=== PATIENT | female | born 1950 | race Caucasian/White ===

== ENCOUNTER 2022-11-05 13:23 | Inpatient (IN) | payer MEDICARE, BC ==
[~2022-11-05] VITALS: Ht 167.6 cm; Wt 87.1 kg
[2022-11-05] MEDS ORDERED: CYCL5TAB PO (16:06)
[2022-11-05] MEDS ORDERED: IBUP-1955 PO (16:06)
[2022-11-05 17:05] LABS: BASOPHILS % (AUTO) 0.2 % (0.0-2.0); EOSINOPHILS % (AUTO) 0.2 % (0.0-6.0); HEMATOCRIT 39 % (33-45); HEMOGLOBIN 12.7 g/dL (11.5-14.8); LYMPHOCYTES # (AUTO) 0.9 K/uL (0.8-4.8); MEAN CORPUSCULAR HGB CONC 33 g/dl (31.0-36.0); MEAN CORPUSCULAR VOLUME 91 fL (82-100); MONOCYTES # (AUTO) 0.7 K/uL (0.1-1.30); MONOCYTES % (AUTO) 4.6 % (2.0-12.0); NEUTROPHILS # (AUTO) 12.7 K/uL (1.8-8.9); PLATELET COUNT (AUTO) 213 K/uL (150-450); RED BLOOD CELL COUNT(AUTO) 4.24 MIL/uL (4.0-5.2); WHITE BLOOD COUNT (AUTO) 14.3 K/uL (4.3-11.0)
[2022-11-05 17:13] LABS: CALCIUM, SERUM 9.5 mg/dL (8.5-10.1); CARBON DIOXIDE 25 mmol/L (21-32); CHLORIDE 102 mmol/L (98-107); GLUCOSE 166 mg/dL (74-106); SODIUM SERUM 138 mmol/L (136-145); UREA NITROGEN, BLOOD 20 mg/dL (7-18)
[2022-11-05] MEDS ORDERED: ONDANSETRON HCL/PF 4 MG/2 ML VIAL IVP PRN (19:30)
[2022-11-05] MEDS ORDERED: ACETAMINOPHEN 325 MG TABLET PO PRN (19:30)
[2022-11-05] MEDS ORDERED: Z GUARD REMEDY 4 OZ OINT TP PRN (19:30)
[2022-11-05] MEDS ORDERED: TRAM50TA2 PO (19:35)
[2022-11-05] MEDS ORDERED: LOSA100T31 PO (19:35)
[2022-11-05] MEDS ORDERED: INSU100I30 SQ (19:35)
[2022-11-05] MEDS ORDERED: ROSU10TA29 PO (19:35)
[2022-11-05 21:00] VITALS: BP 147/68
[2022-11-05] MEDS: TIZANIDINE HCL 4 MG TABLET PO SCH (21:31)
[2022-11-05] MEDS: ENOXAPARIN SODIUM 40 MG/0.4 ML DISP.SYRIN SQ SCH (21:34)
[2022-11-05] MEDS: LIDOCAINE 5% (PATCH) 1 EA PATCH TP SCH (21:34)
[2022-11-06] MEDS: TIZANIDINE HCL 4 MG TABLET PO SCH ×3 (05:42→21:32)
[2022-11-06 05:44] LABS: BASOPHILS # (AUTO) 0.1 K/uL (0.0-0.2); BASOPHILS % (AUTO) 0.5 % (0.0-2.0); EOSINOPHILS % (AUTO) 0.8 % (0.0-6.0); HEMATOCRIT 36 % (33-45); HEMOGLOBIN 12.1 g/dL (11.5-14.8); LYMPHOCYTES # (AUTO) 1.5 K/uL (0.8-4.8); LYMPHOCYTES % (AUTO) 14.1 % (20.0-44.0); MEAN CORPUSCULAR HGB CONC 34 g/dl (31.0-36.0); MEAN CORPUSCULAR VOLUME 91 fL (82-100); MONOCYTES # (AUTO) 0.8 K/uL (0.1-1.30); MONOCYTES % (AUTO) 8.1 % (2.0-12.0); NEUTROPHILS # (AUTO) 7.9 K/uL (1.8-8.9); NEUTROPHILS % (AUTO) 76.5 % (43.0-81.0); PLATELET COUNT (AUTO) 200 K/uL (150-450); RED BLOOD CELL COUNT(AUTO) 3.91 MIL/uL (4.0-5.2); WHITE BLOOD COUNT (AUTO) 10.3 K/uL (4.3-11.0)
[2022-11-06 06:01] LABS: CALCIUM, SERUM 9.1 mg/dL (8.5-10.1); CARBON DIOXIDE 25 mmol/L (21-32); CHLORIDE 103 mmol/L (98-107); CREATININE 1.3 mg/dL (0.6-1.3); GLUCOSE 140 mg/dL (74-106); MAGNESIUM 1.7 mg/dL (1.8-2.4); PHOSPHORUS 4.8 mg/dL (2.5-4.9); POTASSIUM 4.1 mmol/L (3.5-5.1); SODIUM SERUM 137 mmol/L (136-145); UREA NITROGEN, BLOOD 28 mg/dL (7-18)
[2022-11-06 06:08] LABS: CHOLESTEROL 104 mg/dL (<200); HDL CHOLESTEROL 61 mg/dL (40-60); LDL 40 mg/dL (0-99); TRIGLYCERIDES 63 mg/dL (30-150)
[2022-11-06 08:00] VITALS: BP 77/43
[2022-11-06] MEDS: MELOXICAM 7.5 MG TABLET PO SCH (09:16)
[2022-11-06] MEDS ORDERED: IV NS 0.9% 500 ML IV ONE ×2 (10:00→10:30)
[2022-11-06] MEDS ORDERED: CEFTRIAXONE 1 G VIAL IM SCH (10:30)
[2022-11-06] MEDS ORDERED: CEFTRIAXONE 1 G VIAL IV SCH (10:30)
[2022-11-06] MEDS: CEFTRIAXONE 1 G in IV D5W 50 ML IV SCH (11:22)
[2022-11-06 12:14] VITALS: BP 112/62
[2022-11-06] MEDS ORDERED: MAGNESIUM OXIDE 400 MG TABLET PO ONE (13:00)
[2022-11-06 13:21] LABS: BILIRUBIN,URINE 1+ (NEGATIVE); COLOR,URINE YELLOW (YELLOW); LEUKOCYTE ESTERASE ,URINE 1+ (NEGATIVE); NITRITE, URINE NEGATIVE (NEGATIVE); PROTEIN,URINE 1+ mg/dl (NEGATIVE); UGLUCOSE NEGATIVE (NEGATIVE)
[2022-11-06 13:50] LABS: BACTERIA,URINE Many /HPF (None Seen); RBC,URINE 0-2 /HPF (0-2)
[2022-11-06 13:51] LABS: SQUAMOUS EPITHELIAL CELL,UR Moderate /HPF (None Seen)
[2022-11-06] MEDS ORDERED: TRAMADOL HCL 50 MG TABLET PO PRN (14:00)
[2022-11-06] MEDS ORDERED: IV NS 0.9% 1,000 ML IV ONE (16:00)
[2022-11-06 16:04] VITALS: BP 102/48
[2022-11-06 16:20] LABS: IRON, SERUM 38 ug/dl (50-175); TOTAL IRON BINDING CAPACITY 214 ug/dl (250-450)
[2022-11-06] MEDS: ATORVASTATIN 10 MG TABLET PO SCH ×2 (17:15→17:23)
[2022-11-06 19:53] VITALS: BP 129/71
[2022-11-06] MEDS: INSULIN GLARGINE, 100 UNIT/ML CARTRIDGE SQ SCH (21:33)
[2022-11-06] MEDS: LIDOCAINE 5% (PATCH) 1 EA PATCH TP SCH (22:08)
[2022-11-06] MEDS: ENOXAPARIN SODIUM 40 MG/0.4 ML DISP.SYRIN SQ SCH (22:09)
[2022-11-07 05:44] LABS: BASOPHILS % (AUTO) 0.1 % (0.0-2.0); EOSINOPHILS % (AUTO) 1.7 % (0.0-6.0); HEMATOCRIT 35 % (33-45); HEMOGLOBIN 11.7 g/dL (11.5-14.8); LYMPHOCYTES # (AUTO) 1.5 K/uL (0.8-4.8); LYMPHOCYTES % (AUTO) 17.6 % (20.0-44.0); MEAN CORPUSCULAR HGB CONC 34 g/dl (31.0-36.0); MEAN CORPUSCULAR VOLUME 92 fL (82-100); MONOCYTES # (AUTO) 0.6 K/uL (0.1-1.30); MONOCYTES % (AUTO) 7.3 % (2.0-12.0); NEUTROPHILS # (AUTO) 6.3 K/uL (1.8-8.9); NEUTROPHILS % (AUTO) 73.3 % (43.0-81.0); PLATELET COUNT (AUTO) 180 K/uL (150-450); RED BLOOD CELL COUNT(AUTO) 3.75 MIL/uL (4.0-5.2); WHITE BLOOD COUNT (AUTO) 8.6 K/uL (4.3-11.0)
[2022-11-07] MEDS: TIZANIDINE HCL 4 MG TABLET PO SCH ×3 (05:59→21:29)
[2022-11-07 06:07] LABS: CALCIUM, SERUM 8.9 mg/dL (8.5-10.1); CARBON DIOXIDE 23 mmol/L (21-32); CHLORIDE 105 mmol/L (98-107); GLUCOSE 139 mg/dL (74-106); MAGNESIUM 1.8 mg/dL (1.8-2.4); PHOSPHORUS 3.2 mg/dL (2.5-4.9); POTASSIUM 3.7 mmol/L (3.5-5.1); SODIUM SERUM 138 mmol/L (136-145); UREA NITROGEN, BLOOD 36 mg/dL (7-18)
[2022-11-07 07:30] VITALS: BP 148/65
[2022-11-07] MEDS: MELOXICAM 7.5 MG TABLET PO SCH (08:27)
[2022-11-07] MEDS: LOSARTAN POTASSIUM 50 MG TABLET PO SCH (08:28)
[2022-11-07] MEDS: CEFTRIAXONE 1 G in IV D5W 50 ML IV SCH (09:53)
[2022-11-07 16:00] VITALS: BP 131/73
[2022-11-07] MEDS: ATORVASTATIN 10 MG TABLET PO SCH (17:20)
[2022-11-07] MEDS ORDERED: IV 1/2NS 1000 ML 1,000 ML IV ONE (18:00)
[2022-11-07 20:00] VITALS: BP 133/77
[2022-11-07] MEDS: LIDOCAINE 5% (PATCH) 1 EA PATCH TP SCH (21:29)
[2022-11-07] MEDS: ENOXAPARIN SODIUM 40 MG/0.4 ML DISP.SYRIN SQ SCH (21:30)
[2022-11-07] MEDS: INSULIN GLARGINE, 100 UNIT/ML CARTRIDGE SQ SCH (22:01)
[2022-11-08] MEDS: TIZANIDINE HCL 4 MG TABLET PO SCH ×2 (05:41→13:47)
[2022-11-08] MEDS: MELOXICAM 7.5 MG TABLET PO SCH (08:49)
[2022-11-08] MEDS: LOSARTAN POTASSIUM 50 MG TABLET PO SCH (08:51)
[2022-11-08 09:18] VITALS: BP 137/70
[2022-11-08] MEDS ORDERED: CEPH250C PO (10:35)
[2022-11-08] MEDS: CEFTRIAXONE 1 G in IV D5W 50 ML IV SCH (11:08)
== END 2022-11-08 16:00 | DRG 551 ==
LOC: ER 13:28 → EDBD 13:28 → MED 19:08
PROVIDERS: ADMIT Nurse Practitioner Acute Care; ATTEND Nurse Practitioner Acute Care
DX: M51.37 Other intervertebral disc degeneration, lumbosacral region (principal); R53.2 Functional quadriplegia; N39.0 Urinary tract infection, site not specified; G91.9 Hydrocephalus, unspecified; M47.817 Spondylosis without myelopathy or radiculopathy, lumbosacral region; M47.816 Spondylosis without myelopathy or radiculopathy, lumbar region; M48.07 Spinal stenosis, lumbosacral region; F03.C0 Unspecified dementia, severe, without behavioral disturbance, psychotic disturbance, mood disturbance, and anxiety; E11.9 Type 2 diabetes mellitus without complications; I10 Essential (primary) hypertension; Z79.4 Long term (current) use of insulin; Z79.899 Other long term (current) drug therapy; E83.42 Hypomagnesemia; G89.29 Other chronic pain
CPT/HCPCS: 36415; 72131-TC; 73521; 76770-TC; 80048-TC; 80061-TC; 81001; 82962-TC; 83540-TC; 83735-TC; 84100-TC; 85025-TC; 87081-TC; 87086-TC; 97110-TC; 97112-TC; 97116-TC; 97530-TC; A4223; C9803; G0378; J0696; J1650; J1815; J3490; J7030; J7040; J7050; J7060